=== PATIENT | male | born 1965 | race Caucasian/White ===

== ENCOUNTER → 2020-08-10 | Outpatient (CLI) | payer OTHER | LOC: KOH-I 08:00 | DX: G95.9 Disease of spinal cord, unspecified (principal); M50.31 Other cervical disc degeneration, high cervical region; M51.34 Other intervertebral disc degeneration, thoracic region; M47.816 Spondylosis without myelopathy or radiculopathy, lumbar region; M25.78 Osteophyte, vertebrae | CPT/HCPCS: 72141; 72146; 72148 ==

== ENCOUNTER → 2020-09-29 | Outpatient (CLI) | payer OTHER | LOC: ECHO 09-15 11:00 → HEART 5 14:56 | DX: R01.1 Cardiac murmur, unspecified (principal); I08.3 Combined rheumatic disorders of mitral, aortic and tricuspid valves | CPT/HCPCS: 93306 ==

== ENCOUNTER → 2021-01-03 | Outpatient (CLI) | payer BC, OTHER | LOC: EXRD 10:12 | DX: M50.03 Cervical disc disorder with myelopathy, cervicothoracic region (principal) | CPT/HCPCS: 77080 ==

== ENCOUNTER → 2021-02-10 | Outpatient (CLI) | payer BC ==
[~2021-02-10] MED LIST: ATENOLOL50 MG PO; CYCLOBENZAPRINE10 MG PO; GABAPENTIN400 MG PO; IBU800 MG PO; LISINOPRIL40 MG PO; PROZAC20 MG PO; VISTARIL25 MG PO
== END ==
LOC: KOH-I 09:03
DX: Z01.818 Encounter for other preprocedural examination (principal); M50.020 Cervical disc disorder with myelopathy, mid-cervical region, unspecified level; M51.04 Intervertebral disc disorders with myelopathy, thoracic region; M47.814 Spondylosis without myelopathy or radiculopathy, thoracic region; M50.30 Other cervical disc degeneration, unspecified cervical region; M47.812 Spondylosis without myelopathy or radiculopathy, cervical region
CPT/HCPCS: 72125; 72128

== ENCOUNTER → 2021-02-13 | Outpatient (CLI) | payer BC ==
[2021-02-13 10:37] LABS: HEMOGLOBIN 13.3 gm/dl (14.0-17.5); RED BLOOD COUNT 4.64 M/UL (4.20-5.50); WHITE BLOOD COUNT 6.6 K/UL (4.5-11.0)
[2021-02-13 10:48] LABS: BUN/CREATININE RATIO 23 (0-10)
== END ==
LOC: OPSV2 09:00 → EDSTATUS 09:00 → OPSV2 09:11
PROVIDERS: Orthopaedic Surgery
DX: Z01.818 Encounter for other preprocedural examination (principal); Q06.1 Hypoplasia and dysplasia of spinal cord; M40.292 Other kyphosis, cervical region
CPT/HCPCS: 71046; 80048; 81001; 85027; 85610; 85730; 87081; 93005

== ENCOUNTER 2021-02-27 21:00 | Inpatient (IN) | payer BC ==
[~2021-02-27] VITALS: Ht 172.7 cm; Wt 72.0 kg
[2021-02-27 16:08] LABS: HEMOGLOBIN 11.5 gm/dl (14.0-17.5)
[2021-02-27 22:55] LABS: HEMOGLOBIN 11.1 gm/dl (14.0-17.5); RED BLOOD COUNT 3.83 M/UL (4.20-5.50)
[2021-02-27 23:10] LABS: BUN/CREATININE RATIO 15 (0-10)
[2021-02-28 05:44] LABS: HEMOGLOBIN 9.2 gm/dl (14.0-17.5); WHITE BLOOD COUNT 7.8 K/UL (4.5-11.0)
[2021-02-28 05:55] LABS: RED BLOOD COUNT 3.17 M/UL (4.20-5.50)
[2021-02-28 05:57] LABS: BUN/CREATININE RATIO 17 (0-10)
[2021-03-01 03:35] LABS: HEMOGLOBIN 10.9 gm/dl (14.0-17.5)
[2021-03-01 03:38] LABS: RED BLOOD COUNT 3.71 M/UL (4.20-5.50); WHITE BLOOD COUNT 11.9 K/UL (4.5-11.0)
[2021-03-01 03:52] LABS: BUN/CREATININE RATIO 23 (0-10)
[2021-03-02 04:23] LABS: HEMOGLOBIN 10.8 gm/dl (14.0-17.5); RED BLOOD COUNT 3.67 M/UL (4.20-5.50); WHITE BLOOD COUNT 10.8 K/UL (4.5-11.0)
[2021-03-02 05:18] LABS: BUN/CREATININE RATIO 28 (0-10)
[2021-03-03 03:50] LABS: HEMOGLOBIN 11.9 gm/dl (14.0-17.5); RED BLOOD COUNT 4.11 M/UL (4.20-5.50); WHITE BLOOD COUNT 10.7 K/UL (4.5-11.0)
[2021-03-03 04:17] LABS: BUN/CREATININE RATIO 27 (0-10)
[2021-03-04 03:48] LABS: HEMOGLOBIN 11.3 gm/dl (14.0-17.5); RED BLOOD COUNT 3.84 M/UL (4.20-5.50); WHITE BLOOD COUNT 11.8 K/UL (4.5-11.0)
[2021-03-04 04:23] LABS: BUN/CREATININE RATIO 22 (0-10)
[2021-03-05 03:53] LABS: HEMOGLOBIN 10.9 gm/dl (14.0-17.5); RED BLOOD COUNT 3.74 M/UL (4.20-5.50); WHITE BLOOD COUNT 12.9 K/UL (4.5-11.0)
[2021-03-05 04:10] LABS: BUN/CREATININE RATIO 24 (0-10)
[2021-03-06 03:39] LABS: HEMOGLOBIN 10.3 gm/dl (14.0-17.5); RED BLOOD COUNT 3.57 M/UL (4.20-5.50); WHITE BLOOD COUNT 11.2 K/UL (4.5-11.0)
[2021-03-06 04:03] LABS: BUN/CREATININE RATIO 21 (0-10)
--- NOTE | 2021-03-07 02:21 | NUR ---
0200- PATIENT ARGUMENTATIVE WITH NURSING STAFF, DEMANDING NEURONTIN. PATIENT EDUCATED THAT HIS NEURONTIN IS A SCHEDULED MEDICAITON AND THAT HIS NEXT DOSE WOULD BE AT 0600 PER MD ORDERS.
[2021-03-07 04:03] LABS: HEMOGLOBIN 11.1 gm/dl (14.0-17.5); RED BLOOD COUNT 3.78 M/UL (4.20-5.50); WHITE BLOOD COUNT 11.3 K/UL (4.5-11.0)
[2021-03-07 04:28] LABS: BUN/CREATININE RATIO 18 (0-10)
[2021-03-08 03:43] LABS: RED BLOOD COUNT 3.47 M/UL (4.20-5.50)
[2021-03-08 03:51] LABS: WHITE BLOOD COUNT 7.7 K/UL (4.5-11.0)
[2021-03-08 04:02] LABS: BUN/CREATININE RATIO 21 (0-10)
[2021-03-09 04:00] LABS: HEMOGLOBIN 11.2 gm/dl (14.0-17.5)
[2021-03-09 04:17] LABS: BUN/CREATININE RATIO 20 (0-10); RED BLOOD COUNT 3.82 M/UL (4.20-5.50); WHITE BLOOD COUNT 11.2 K/UL (4.5-11.0)
[2021-03-10 09:11] LABS: RED BLOOD COUNT 3.74 M/UL (4.20-5.50); WHITE BLOOD COUNT 9.6 K/UL (4.5-11.0)
[2021-03-10 09:37] LABS: BUN/CREATININE RATIO 16 (0-10)
--- NOTE | 2021-03-11 03:33 | NUR ---
PATIENT EDUCATED ON FALL RISK, EXPLAINED TO PATIENT HE IS VERY UNSTEADY ON HIS FEET AND IN DANGER OF FALLING, PATIENT REFUSES TO BE COMPLIANT, PATIENT STATES HE IS FINE AND HE IS "GOING TO GET UP" PATIENT REFUSES TO NOTIFY NURSING STAFF BEFORE GETTING OUT OF BED FOR ANY REASON
--- NOTE | 2021-03-11 03:59 | NUR ---
assumed care of this patientat this time
[2021-03-11 04:17] LABS: HEMOGLOBIN 10.9 gm/dl (14.0-17.5); RED BLOOD COUNT 3.78 M/UL (4.20-5.50); WHITE BLOOD COUNT 8.5 K/UL (4.5-11.0)
[2021-03-11 04:37] LABS: BUN/CREATININE RATIO 12 (0-10)
[2021-03-11] MEDS ORDERED: SULFAMETHOXAZO1 EACH PO (07:58)
== END 2021-03-11 12:26 | disposition home or self-care (01) | DRG 454 ==
LOC: OR 21:00 → CCU 21:00 → PROG CARE 02-28 00:36
PROVIDERS: Internal Medicine; ADMIT Orthopaedic Surgery
PROC: 0RB30ZZ Excision of Cervical Vertebral Disc, Open Approach (ICD-10-PCS; 2021-02-27)
PROC: 01N10ZZ Release Cervical Nerve, Open Approach (ICD-10-PCS; 2021-02-27)
PROC: 00NW0ZZ Release Cervical Spinal Cord, Open Approach (ICD-10-PCS; 2021-02-27)
PROC: 4A11X4G Monitoring of Peripheral Nervous Electrical Activity, Intraoperative, External Approach (ICD-10-PCS; 2021-02-27)
PROC: 0BH17EZ Insertion of Endotracheal Airway into Trachea, Via Natural or Artificial Opening (ICD-10-PCS; principal; 2021-02-27 07:30)
PROC: 5A1935Z Respiratory Ventilation, Less than 24 Consecutive Hours (ICD-10-PCS; 2021-02-27 07:30)
PROC: 0RG20A0 Fusion of 2 or more Cervical Vertebral Joints with Interbody Fusion Device, Anterior Approach, Anterior Column, Open Approach (ICD-10-PCS; 2021-02-27 07:30)
PROC: 0RG2071 Fusion of 2 or more Cervical Vertebral Joints with Autologous Tissue Substitute, Posterior Approach, Posterior Column, Open Approach (ICD-10-PCS; 2021-02-28)
PROC: 0RG4071 Fusion of Cervicothoracic Vertebral Joint with Autologous Tissue Substitute, Posterior Approach, Posterior Column, Open Approach (ICD-10-PCS; 2021-02-28)
PROC: 0RG6071 Fusion of Thoracic Vertebral Joint with Autologous Tissue Substitute, Posterior Approach, Posterior Column, Open Approach (ICD-10-PCS; 2021-02-28)
PROC: 00CU0ZZ Extirpation of Matter from Spinal Canal, Open Approach (ICD-10-PCS; 2021-03-07)
DX: M48.02 Spinal stenosis, cervical region (principal); Z99.11 Dependence on respirator [ventilator] status; D62 Acute posthemorrhagic anemia; Z20.822 Contact with and (suspected) exposure to COVID-19; L76.34 Postprocedural seroma of skin and subcutaneous tissue following other procedure; L76.32 Postprocedural hematoma of skin and subcutaneous tissue following other procedure; M54.12 Radiculopathy, cervical region; I10 Essential (primary) hypertension; M41.86 Other forms of scoliosis, lumbar region; F17.210 Nicotine dependence, cigarettes, uncomplicated; F10.10 Alcohol abuse, uncomplicated; F41.9 Anxiety disorder, unspecified; F32.A Depression, unspecified; D72.829 Elevated white blood cell count, unspecified; K59.00 Constipation, unspecified; G89.29 Other chronic pain; I08.3 Combined rheumatic disorders of mitral, aortic and tricuspid valves; E87.6 Hypokalemia; Y83.8 Other surgical procedures as the cause of abnormal reaction of the patient, or of later complication, without mention of misadventure at the time of the procedure; Z82.49 Family history of ischemic heart disease and other diseases of the circulatory system; Z83.79 Family history of other diseases of the digestive system
CPT/HCPCS: 36415; 71045; 72040; 72050; 73030; 76000; 80048; 80053; 82803; 85014; 85018; 85025; 85027; 87070; 87205; 94002; 94640; 94760; 97110; 97110-GP-CQ; 97116; 97116-GP-CQ; 97161; 97166; 97530; 97530-GP-CQ; 97535; C1713; C1762; C1781; J0360; J0690; J1040; J1100; J1170; J1200; J1644; J1885; J2001; J2060; J2250; J2370; J2405; J2704; J3010; J3260; J3370; J3475; J7030; J7040; J7120; Q0177; U0002

== ENCOUNTER 2021-04-09 22:36 | Inpatient (IN) | payer OTHER ==
[~2021-04-09] VITALS: Ht 165.1 cm; Wt 63.5 kg
[~2021-04-09 22:36] MED LIST changes: -CYCLOBENZAPRINE10 MG PO; -LISINOPRIL40 MG PO; +MULTI-VITAMIN1 EACH PO; -PROZAC20 MG PO; +SULFAMETHOXAZO1 EACH PO; -VISTARIL25 MG PO
[2021-04-09 23:03] LABS: HEMOGLOBIN 11.6 gm/dl (14.0-17.5); RED BLOOD COUNT 4.12 M/UL (4.20-5.50); WHITE BLOOD COUNT 9.9 K/UL (4.5-11.0)
[2021-04-10 09:25] LABS: HEMOGLOBIN 9.4 gm/dl (14.0-17.5); RED BLOOD COUNT 3.36 M/UL (4.20-5.50)
[2021-04-10 09:52] LABS: BUN/CREATININE RATIO 40 (0-10)
[2021-04-10] MEDS ORDERED: HYDROXYZINE HCL25 MG PO (11:01)
[2021-04-10] MEDS ORDERED: LISINOPRIL40 MG PO (11:02)
[2021-04-10] MEDS ORDERED: PROZAC20 MG PO (11:02)
[2021-04-10] MEDS ORDERED: CYCLOBENZAPRINE10 MG PO (11:03)
[2021-04-10] MEDS ORDERED: ROXICODONE5 MG PO (13:19)
[2021-04-10] MEDS ORDERED: ATENOLOL50 MG PO (13:20)
[2021-04-10] MEDS ORDERED: GABAPENTIN300 MG PO (13:20)
[2021-04-10] MEDS ORDERED: BC POWDER PACK1 EACH PO (13:22)
[2021-04-10] MEDS ORDERED: TYLENOL325 MG PO (13:23)
[2021-04-10] MEDS ORDERED: ADVIL200 MG PO (13:23)
[2021-04-11 06:38] LABS: HEMOGLOBIN 8.8 gm/dl (14.0-17.5); RED BLOOD COUNT 3.17 M/UL (4.20-5.50); WHITE BLOOD COUNT 5.2 K/UL (4.5-11.0)
[2021-04-11 06:55] LABS: BUN/CREATININE RATIO 29 (0-10)
== END 2021-04-11 16:20 | disposition home or self-care (01) | DRG 683 ==
LOC: ER1 22:36 → M/S 04-10 00:58 → CDU 04-10 00:58 → 3 EAST 04-10 13:20 → M/S 04-10 19:24
PROVIDERS: Family Medicine; Internal Medicine; ADMIT Internal Medicine
DX: N17.9 Acute kidney failure, unspecified (principal); E87.2 Acidosis; E87.1 Hypo-osmolality and hyponatremia; Z20.822 Contact with and (suspected) exposure to COVID-19; R13.10 Dysphagia, unspecified; E87.5 Hyperkalemia; M54.12 Radiculopathy, cervical region; I10 Essential (primary) hypertension; E86.0 Dehydration; F10.10 Alcohol abuse, uncomplicated; G89.29 Other chronic pain; F17.210 Nicotine dependence, cigarettes, uncomplicated; Z98.890 Other specified postprocedural states; Z81.1 Family history of alcohol abuse and dependence; Z71.6 Tobacco abuse counseling
CPT/HCPCS: 70491; 74221; 80048; 80053; 81001; 83605; 83690; 85025; 85027; 85610; 92610; 93005; 96374; 99285; J1644; J7030; Q9963; Q9967; U0002